=== PATIENT | female | born 1980 | race African-American/Black ===

== ENCOUNTER 2022-01-15 18:48 | Emergency (ER) | payer OTHER ==
[2022-01-15 19:09] VITALS: BP 119/75; PULSE 53; RESP 19; TEMP 98.3; BMI 31.8
[2022-01-15 21:25] LABS: BASO % 0.9 % (0-2.0); EOS % 3.6 % (0-4.5); HEMATOCRIT 39.4 % (32.4-45.2); HEMOGLOBIN 12.7 GM/dL (10.7-15.3); MCH 25.7 pg (25.7-33.7); MCHC 32.2 g/dl (32.0-36.0); MEAN CELL VOLUME 79.8 fl (80-96); MEAN PLT VOLUME 7.6 fl (7.5-11.1); MONO % 6.3 % (3.8-10.2); NEUT % 71.2 % (42.8-82.8); PLATELET COUNT 438 10^3/uL (134-434); RBC 4.94 M/mm3 (3.60-5.2); RDW 17.2 % (11.6-15.6); WHITE BLOOD COUNT 8.2 K/mm3 (4.0-10.0)
[2022-01-15 21:27] LABS: PH,URINE 5.5 (5.0-8.0); URINE APPEARANCE CLEAR; URINE BILIRUBIN NEGATIVE (NEGATIVE); URINE COLOR YELLOW; URINE GLUCOSE (UA) NEGATIVE (NEGATIVE); URINE KETONE NEGATIVE (NEGATIVE); URINE LEUK ESTERASE NEGATIVE (NEGATIVE); URINE NITRITE NEGATIVE (NEGATIVE); URINE PROTEIN NEGATIVE (NEGATIVE); URINE UROBILINOGEN 0.2 mg/dL (0.2-1.0)
[2022-01-15 21:30] LABS: HCG,QUALITATIVE URINE Negative
[2022-01-15 21:52] LABS: CALCIUM 9.6 mg/dL (8.5-10.1)
[2022-01-15 21:53] LABS: ALBUMIN 3.9 g/dl (3.4-5.0)
[2022-01-15 21:56] LABS: CREATININE 0.8 mg/dL (0.55-1.3)
[2022-01-15 21:58] LABS: BILIRUBIN,TOTAL 0.2 mg/dL (0.2-1); TOT PROT 7.8 g/dl (6.4-8.2)
== END 2022-01-15 23:41 | disposition home or self-care (01) ==
LOC: JER 18:48
DX: N83.202 Unspecified ovarian cyst, left side (principal)
CPT/HCPCS: 36415; 74177-TC; 80053; 81003; 84703; 85025; 87086; 99285-25; Q9967

== ENCOUNTER 2024-11-11 11:14 | Emergency (ER) | payer OTHER ==
[2024-11-11 11:25] VITALS: RESP 18; TEMP 98.2; BMI 34.2
[2024-11-11] MEDS ORDERED: ONDANSETRON 4 MG/2 ML VIAL ONE (11:58)
[2024-11-11] MEDS ORDERED: ACETAMINOPHEN INJECTION 100 ML ONE (11:58)
[2024-11-11] MEDS: ACETAMINOPHEN 1000 MG/100 ML BAG IVPB ONE (12:11)
[2024-11-11] MEDS: ONDANSETRON 4 MG/2 ML VIAL IVPUSH ONE (12:11)
[2024-11-11 12:21] LABS: HCG,QUALITATIVE URINE Negative
[2024-11-11 12:22] LABS: EPI CELLS 19 /uL (0-25.1); HYALINE CASTS 1 /uL (0-3.1); URINE APPEARANCE CLEAR; URINE BACTERIA 843 /uL (0-1359); URINE BILIRUBIN NEGATIVE (NEGATIVE); URINE COLOR YELLOW; URINE GLUCOSE (UA) NEGATIVE (NEGATIVE); URINE KETONE NEGATIVE (NEGATIVE); URINE LEUK ESTERASE 2+ (NEGATIVE); URINE NITRITE NEGATIVE (NEGATIVE); URINE PROTEIN NEGATIVE (NEGATIVE); URINE RBC 276 /uL (0-23.9); URINE UROBILINOGEN 0.2 mg/dL (0.2-1.0); URINE WBC 119 /uL (0-25.8)
[2024-11-11 12:31] VITALS: BP 116/67; PULSE 64
[2024-11-11 12:34] LABS: ABSOLUTE IMMATURE GRANULOCYTES 0.02 x10^3/uL (0.0-0.031); BASOPHILS # 0.03 x10^3/uL (0.01-0.08); EOSINOPHIL % 4.3 % (0.7-5.8); EOSINOPHILS # 0.19 x10^3/uL (0.04-0.36); HEMOGLOBIN 11.8 g/dL (11.2-15.7); MCHC 31.1 g/dl (32.2-35.5); MEAN CELL VOLUME 82.4 fl (79.4-94.8); MEAN PLT VOLUME 9.8 fl (9.4-12.3); MONOCYTE # 0.24 x10^3/uL (0.24-0.86); MONOCYTE % 5.5 % (4.7-12.5); PLATELET COUNT 327 x10^3/uL (182-369); RDW 15.4 % (12.2-17.1)
[2024-11-11 12:43] LABS: POTASSIUM 4.3 mmol/L (3.5-5.1)
[2024-11-11 12:46] LABS: ALBUMIN 3.4 g/dl (3.4-5.0); BLOOD UREA NITROGEN 14.9 mg/dL (7-18); CALCIUM 9.4 mg/dL (8.5-10.1)
[2024-11-11 12:49] LABS: CREATININE 0.8 mg/dL (0.55-1.3)
[2024-11-11 12:51] LABS: BILIRUBIN,TOTAL 0.3 mg/dL (0.2-1)
[2024-11-11] MEDS ORDERED: CEPHALEXIN MONOHYDRATE 500 MG CAPSULE (UD) ONE (13:20)
[2024-11-11] MEDS ORDERED: CEPHALEXIN MONOHYDRATE 500 MG CAPSULE (UD) PO ONE (13:30)
== END 2024-11-11 13:19 | disposition home or self-care (01) ==
LOC: JER 11:14
DX: N39.0 Urinary tract infection, site not specified (principal)
CPT/HCPCS: 36415; 80053; 81003; 83690; 84703; 85025; 87086; 99283-25